=== PATIENT | male | born 1980 | race Caucasian/White ===

== ENCOUNTER 2016-09-11 09:30 | Outpatient (RCR) | payer BC, OTHER ==
--- OUTSIDE RECORDS SUMMARY | 2016-07-08 13:10 | XMS REPORT | Continuity of Care Document ---
Author Author [facility] Organization [facility] Address Unknown Phone Unavailable Allergies Active Description Code Type Severity Reaction Onset Reported/Identified Relationship to Patient Clinical Status Yes No Allergy Information Available [id number] Drug Allergy Unknown N/A 03/22/2015 Medications Problems Date Dx Coded Attending Type Code Diagnosis Diagnosed By 08/18/2012 Ot 724.2 08/18/2012 Ot V57.1 03/22/2015 Ot 724.2 03/22/2015 Ot 724.4 03/23/2015 SRI RODRIGUEZ, KIM Cameron Ot S43.432A 03/29/2015 SRI RODRIGUEZ, KIM Cameron Ot S43.432A 04/16/2015 SRI RODRIGUEZ, KIM Cameron Ot S43.432A Procedures Results Encounters ACCT No. Visit Date/Time Discharge Status Pt. Type Provider Facility Loc./Unit Complaint [id number] 03/22/2015 08:55:00 2014 23:59:59 CLS Outpatient SRI RODRIGUEZ, KIM Cameron [facility] RAD [id number] 07/17/2016 16:12:00 PK MARSHALL MD, LINDA [place] [facility] REHAB LUMBAR BACK PAIN [id number] 07/22/2012 08:01:00 Document Registration [id number] 06/23/2012 12:28:00 Document Registration
== END 2016-09-11 10:11 | disposition home or self-care (01) ==
PROVIDERS: ATTEND Family Medicine
DX: M54.5 Low back pain (principal)